=== PATIENT | male | born 1965 | race Caucasian/White ===

== ENCOUNTER 2021-09-18 10:20 | Emergency (ER) | payer BC, SELFPAY ==
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
[2021-09-18 10:28] VITALS: BP 140/74; PULSE 56; RESP 20; TEMP 36.9; O2SAT 100
== END 2021-09-18 11:25 | disposition home or self-care (01) ==
PROVIDERS: Emergency Provider Nurse Practitioner Family; PCP Family Medicine
DX: S92.512A Displaced fracture of proximal phalanx of left lesser toe(s), initial encounter for closed fracture (principal); W22.8XXA Striking against or struck by other objects, initial encounter; Z96.651 Presence of right artificial knee joint
CPT/HCPCS: 73630; 99204; G0463